=== PATIENT | female | born 1995 | race American Indian/Alaskan Native ===

== ENCOUNTER 2017-02-17 21:04 | Emergency (ER) | payer BC ==
[2017-02-17 21:11] VITALS: BP 123/70; PULSE 70; RESP 20; TEMP 97.9; O2SAT 100
--- NOTE | 2017-02-17 21:22 | ED PDOC ---
Arrival/HPI - General Chief Complaint: ENT Problem Time Seen by Provider: 02/17/17 21:12 Historian: Patient - History of Present Illness Narrative History of Present Illness (Text): 02/17/17 21:19 21 year old female presents to the emergency department with 2 day duration of bilateral throat pain. She states it hurts when swallowing. Denies cough, fever , vomiting, shortness of breath, or headache. Time/Duration: < week Symptom Onset: Gradual Symptom Course: Unchanged Modifying Factors (Text): None Past Medical History - Provider Review Nursing Documentation Reviewed: Yes - Infectious Disease Hx of Infectious Diseases: None - Psychiatric Hx Substance Use: No - Anesthesia Hx Anesthesia: No Hx Anesthesia Reactions: No Hx Malignant Hyperthermia: No Family/Social History - Physician Review Nursing Documentation Reviewed: Yes Family/Social History: Unknown Family HX Smoking Status: Never Smoked Hx Alcohol Use: No Hx Substance Use: No Allergies/Home Meds Allergies/Adverse Reactions: Allergies No Known Allergies Allergy (Verified 02/17/17 21:11) Review of Systems - Review of Systems Constitutional: absent: Fevers ENT: Sore Throat Respiratory: absent: SOB, Cough Gastrointestinal: absent: Abdominal Pain, Nausea, Vomiting Neurological: absent: Headache Physical Exam Vital Signs Reviewed: Yes Vital Signs Temp Pulse Resp BP Pulse Ox 02/17/17 21:06 97.9 F 70 20 123/70 100 Temperature: Afebrile Blood Pressure: Normal Pulse: Regular Respiratory Rate: Normal Appearance: Positive for: Well-Appearing, Non-Toxic Mental Status: Positive for: Alert and Oriented X 3 - Systems Exam Head: Present: Atraumatic, Normocephalic Pupils: Present: PERRL Conjunctiva: Present: Normal Mouth: Present: Moist Mucous Membranes Pharnyx: Present: EXUDATE (Bilateral tonsilar exudate), TONSILS ENLARGED. No: Peritonsilar Swelling, Uvular Deviation, Muffled/Hoarse Voice, Strider, Soft Palate/Uvular Edema Neck: Present: Lymphadenopathy (b/L anterior cervical adenopathy with mild tenderness) Respiratory/Chest: Present: Clear to Auscultation, Good Air Exchange. No: Respiratory Distress, Accessory Muscle Use Cardiovascular: Present: Regular Rate and Rhythm, Normal S1, S2. No: Murmurs Neurological: Present: GCS=15, CN II-XII Intact, Speech Normal Skin: Present: Warm, Dry, Normal Color. No: Rashes Psychiatric: Present: Alert, Oriented x 3, Normal Insight, Normal Concentration Medical Decision Making ED Course and Treatment: Impression: 21 year old female presents to the emergency department with 2 day duration of bilateral throat pain with noted exam. Differential Diagnosis include but are not limited to: Viral vs bacterial pharyngitis Plan: -- Motrin, Decadron -- Discharge with antibiotics Progress Notes: 02/17/17 21:34 Patient with centor score 3/4 - will d/c on abx, treating for strep and f/u pmd. - Medication Orders Current Medication Orders: Discontinued Medications Amoxicillin (Amoxil 500 Mg Cap) 500 mg PO STAT STA PRN Reason: Protocol Stop: 02/17/17 21:19 Dexamethasone (Decadron) 10 mg PO ONCE STA Stop: 02/17/17 21:20 Ibuprofen (Motrin Oral Susp) 600 mg PO ONCE STA Stop: 02/17/17 21:20 - Scribe Statement The provider has reviewed the documentation as recorded by the Caroline Aquino Provider Scribe Attestation: All medical record entries made by the Stanibjack were at my direction and personally dictated by me. I have reviewed the chart and agree that the record accurately reflects my personal performance of the history, physical exam, medical decision making, and the department course for this patient. I have also personally directed, reviewed, and agree with the discharge instructions and disposition. Disposition/Present on Arrival - Present on Arrival Any Indicators Present on Arrival: No History of DVT/PE: No History of Uncontrolled Diabetes: No Urinary Catheter: No History of Decub. Ulcer: No History Surgical Site Infection Following: None - Disposition Have Diagnosis and Disposition been Completed?: Yes Diagnosis: Pharyngitis Disposition: HOME/ ROUTINE Disposition Time: 21:25 Patient Plan: Discharge Condition: GOOD Discharge Instructions (ExitCare): Pharyngitis (ED) Additional Instructions: Drink plenty of fluids. Take the antibiotics as prescribed. Motrin for pain. Follow up with your primary care doctor. Return to the emergency department if any new concerning symptoms. Prescriptions: Amoxicillin [Amoxil 500 mg Cap] 1 cap PO TID #30 cap Ibuprofen [Motrin Tab] 1 tab PO Q8H PRN #15 tab PRN Reason: Pain, Moderate (4-7) Referrals: Dawna Hernandes MD [Staff Provider] - Follow up with primary
== END 2017-02-17 21:55 | disposition home or self-care (01) ==
LOC: ED 21:04
DX: J02.9 Acute pharyngitis, unspecified (principal)
CPT/HCPCS: 99282; J8540